=== PATIENT | female | born 1990 | race Caucasian/White ===

== ENCOUNTER 2016-11-12 15:50 | Emergency (ER) | payer OTHER ==
[~2016-11-12] VITALS: Ht 167.6 cm; Wt 56.9 kg
[2016-11-12 15:55] VITALS: TEMP 36.8; Ht 167.6 cm; Wt 56.9 kg
[2016-11-12] MEDS ORDERED: HYDROCODONE/ACETAMOPHEN 5/325MG TAB PO STA (16:04)
[2016-11-12] MEDS ORDERED: ONDANSETRON 4MG OD TAB PO STA (16:04)
[2016-11-12] MEDS ORDERED: CHOL1000 PO (16:17)
[2016-11-12] MEDS ORDERED: NXM/40 PO (16:18)
[2016-11-12] MEDS ORDERED: ESCI10TA17 PO (16:19)
[2016-11-12] MEDS ORDERED: RANI300T2 PO (16:20)
[2016-11-12] MEDS ORDERED: TRAZ50TA35 PO (16:20)
[2016-11-12] MEDS ORDERED: B-COTAB18 PO (16:22)
--- NOTE | 2016-11-12 16:57 | DIAGNOSTIC IMAGING REPORT ---
CT HEAD WITHOUT CONTRAST (CT) CLINICAL HISTORY: Head trauma. Headache, nausea. COMPARISON STUDY: No previous studies for comparison. TECHNIQUE: Axial CT of the brain is performed from the vertex to the skull base. IV contrast was not administered for this examination. A dose lowering technique was utilized adhering to the principles of ALARA. CT DOSE: 537.48 mGy.cm FINDINGS: No intra or extra-axial mass lesions are visualized. There is no CT evidence of acute cortical infarction. There is no evidence of midline shift. There is no acute hemorrhage. No calvarial fractures are visualized. There is no evidence of pathologic ventricular dilatation. There is no evidence of acute sinusitis IMPRESSION: Normal noncontrast head CT. Electronically signed by: Prasanna Rosenthal M.D. 11/12/2016 4:55 PM Dictated Date/Time: 11/12/2016 4:54 PM
[2016-11-12] MEDS ORDERED: KETOROLAC TROMETHAMINE 60 MG/2 ML VIAL IM STA (17:11)
[2016-11-12 18:10] VITALS: BP 117/65; PULSE 63; O2SAT 98
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
== END 2016-11-12 18:09 | disposition home or self-care (01) ==
LOC: C.EDB 15:51 → C.EDD 18:09
DX: S09.90XA Unspecified injury of head, initial encounter (principal); R51 Headache; Z79.899 Other long term (current) drug therapy; Z87.442 Personal history of urinary calculi; F17.200 Nicotine dependence, unspecified, uncomplicated; Y04.0XXA Assault by unarmed brawl or fight, initial encounter

== ENCOUNTER 2021-08-18 17:48 | Inpatient (IN) ==
[2021-08-18] MEDS ORDERED: OXYTOCIN 30 UNITS/500 ML BAG IV PRN (18:11)
[2021-08-18] MEDS ORDERED: SODIUM CHLORIDE 0.9% 1000ML 1,000 ML IV PRN (18:12)
[2021-08-18] MEDS ORDERED: DEXTROSE 50% 50 ML SYRINGE IV PRN (18:12)
--- NOTE | 2021-08-18 18:13 | History & Physical Report ---
Date of Service August 18, 2021 Assessment & Plan (1) 40 weeks gestation of : Plan: Admit for term labor, routine labs Epidural Plan to AROM after Anticipate spontaneous vaginal delivery (2) GDM (gestational diabetes mellitus), class A1: Plan: Hourly glucose checks, start insulin protocol if indicated (3) LGA (large for gestational age) fetus: Plan: EFW on August 17, 2021 was 412 4 g No contraindication to attempted vaginal delivery at this time, would not attempt operative delivery for increased risk of shoulder dystocia (4) Anemia affecting in third trimester: Plan: CBC pending (5) renal anomaly, single gestation: Plan: 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 on US plan for post renal ultrasound and pediatric nephrology in 4 to 6 weeks (6) Rubella non-immune status, antepartum: Plan: MMR (7) Moderate recurrent major depression: Plan: Continue to monitor (8) Maternal varicella, non-immune: (9) Calculus of kidney affecting in third trimester: Plan: Patient has a renal stent and on the right side Plan for Barbour catheter instead of straight catheter after epidural Admission and Anticipated Discharge Date Admission Date: 08/18/2021 History of Present Illness Chief Complaint: Contractions Primary Care Provider: Luz Maria Curtis PA-C Patient is a 31-year-old G1, P0 at 40 weeks and 2 days dated by last menstrual period consistent with 8-week ultrasound who presents to labor and delivery for ongoing contractions. When she initially called the answering service contractions were every 10 minutes however now they are every 3 to 4 minutes. Notes good movement. Denies vaginal bleeding or leaking of fluid. Think she lost her mucous plug earlier today. Denies headache, blurry vision, right upper quadrant epigastric pain. Otherwise feeling well. No other complaints at this time. Desires an epidural for pain control history is complicated by diet-controlled gestational diabetes, renal anomaly, antepartum anemia, tobacco use, rubella nonimmune, moderate recurrent depression, varicella nonimmune and a calculus of right kidney in her third trimester which she got on stent in her right ureter. Please see record for further information Allergies Allergy/AdvReac Type Severity Reaction Status Date / Time No Known Allergies Allergy Unverified 11/12/16 16:23 Home Medications Medication Instructions Recorded Confirmed Type B-COMPLEX VITAMINS (VITAMIN B 1 tab PO QAM #0 11/12/16 History COMPLEX) CHOLECALCIFEROL (VITAMIN D3) 1,000 unit PO QAM #0 tab 11/12/16 History Escitalopram (Lexapro) 10 mg PO QAM #0 tab 11/12/16 History Esomeprazole Magnesium (Nexium) 40 mg PO QAM #0 cap 11/12/16 History Ranitidine Hcl (ZANTAC) 300 mg PO HS #0 tab 11/12/16 History Trazodone Hcl (Trazodone) 50 mg PO HS #0 tab 11/12/16 History Patient History OB History [employer] History See record Review of Systems All systems reviewed & are unremarkable except as noted in HPI & below Physical Exam Constitutional: WD/WN, vitals as above Respiratory: normal respiratory effort, lungs clear to auscultation Cardiovascular: RRR, no murmur, no edema Gastrointestinal (Abdomen): normal bowel sounds, soft, nontender, no hepatosplenomegaly Genitourinary: no vaginal lesions, no adnexal mass OB Exam Abdomen: + fundal height, + heart tones, + vertex, + estimated weight and + regular contractions FH: 40 Cervix: 6/90/-1, bulging bag, cephalic Results & Data ([facility]) Vital Signs (Past 12 Hours) Vital Signs Pulse BP 08/18/21 18:04 85 125/70 Laboratory Results Pending Monitoring External Monitor FHT: Baseline 150, moderate variability, positive accelerations, no decelerations, category 1 tracing Tocodynamometer Tocometer: Every 3 to 4-minute
[2021-08-18] MEDS: LACTATED RINGER'S 1,000 ML IV PRN ×2 (18:40→20:15)
[2021-08-18] MEDS ORDERED: ePHEDrine sulfate 50 MG/ML AMP ONE (18:50)
[2021-08-18] MEDS ORDERED: fentaNYL 2MCG/ML ROPIVACAINE 1.25MG/ML 100 ML BAG EPI ONE (18:51)
[2021-08-18] MEDS ORDERED: fentaNYL citrate 100 MCG/2 ML VIAL ONE (18:51)
[2021-08-18] MEDS ORDERED: SODIUM CHLORIDE 0.9% INJ 10 ML VIAL ONE (18:51)
[2021-08-18] MEDS ORDERED: BUPIVACAINE 0.25% 30 ML VIAL ONE ×2 (18:51→23:12)
[2021-08-18 18:53] LABS: Hematocrit (blood only) 33.6 % (37-47); Hemoglobin 11.5 g/dL (12.0-16.0); Mean Corpuscular Hemoglobin 32.7 pg (25-34); Mean Corpuscular Hgb Conc 34.2 g/dL (32-36); Mean Corpuscular Volume 95.5 fL (80-100); Mean Platelet Volume 10.4 fL (7.4-10.4); Platelet Count 250 K/uL (130-400); RDW Coefficient of Variation 13.8 % (11.5-14.5); RDW Standard Deviation 47.8 fL (36.4-46.3); Red Blood Count 3.52 M/uL (4.2-5.4); White Blood Count 17.86 K/uL (4.8-10.8)
[2021-08-18] MEDS ORDERED: ONDANSETRON INJ 2 MG/ML 2 ML VIAL IV PRN (19:01)
[2021-08-18] MEDS ORDERED: NALBUPHINE HCL INJ 10 MG/ML AMP IV PRN (19:01)
[2021-08-18] MEDS ORDERED: NALOXONE HCL 0.4 MG/1 ML VIAL/CARP IV PRN (19:01)
[2021-08-18] MEDS ORDERED: diphenhydrAMINE 50 MG/ML VIAL IV PRN (19:01)
[2021-08-18] MEDS ORDERED: NALOXONE HCL 1 MG in SODIUM CHLORIDE 0.9% 1000ML 1,000 ML IV PRN (19:01)
[2021-08-18] MEDS ORDERED: ePHEDrine sulfate 50 MG/ML AMP IV PRN (19:01)
--- NOTE | 2021-08-18 19:02 | Anesthesiology Consultation ---
Date of Service August 18, 2021 Assessment & Plan (1) Encounter for pre-operative examination: Chart Review Chart Review: Patient NOT seen in Pre Admission Testing and Acceptable Risk for Labor Epidural Consults Requested none History Allergies Allergy/AdvReac Type Severity Reaction Status Date / Time No Known Allergies Allergy Verified 08/18/21 19:16 Medications Home Medications Medication Instructions Recorded Confirmed Last Taken B-COMPLEX VITAMINS (VITAMIN B 1 tab PO QAM #0 11/12/16 Unknown COMPLEX) CHOLECALCIFEROL (VITAMIN D3) 1,000 unit PO QAM #0 tab 11/12/16 Unknown Escitalopram (Lexapro) 10 mg PO QAM #0 tab 11/12/16 Unknown Esomeprazole Magnesium (Nexium) 40 mg PO QAM #0 cap 11/12/16 Unknown Ranitidine Hcl (ZANTAC) 300 mg PO HS #0 tab 11/12/16 Unknown Trazodone Hcl (Trazodone) 50 mg PO HS #0 tab 11/12/16 Unknown Active Medications Generic Name Dose Route Start Last Admin Trade Name Freq PRN Reason Stop Dose Admin Lactated Ringer's 1,000 mls @ 125 mls/hr 08/18/21 18:11 08/18/21 18:40 Lr IV 08/20/21 18:10 999 mls/hr .Q8H PRN Administration L&D Protocol Protocol Past Medical History Medical History (Updated 08/18/21 @ 19:02 by Renan Herrera MD) GDM (gestational diabetes mellitus), class A1 LGA (large for gestational age) fetus Exercise / Class Metabolic Activity II 4-5 Yardwork/Stairs/Walk up hill Past Surgical History Surgical History (Updated 08/18/21 @ 19:19 by Kaley Leon RN) History of renal stent May 2021 Hx of tonsillectomy as a child [place] teeth extracted Past Anesthesia History No Hx of Anesthesia Complications and No Family Hx of Anesthesia Complications History of PONV No Hx of PONV and No Hx of Motion Sickness Physical Exam Vital Signs Last Vital Signs Pulse 103 H 08/18/21 19:22 BP 125/70 08/18/21 18:04 Pulse Ox 99 08/18/21 19:22 Testing Laboratory Results 08/18/21 18:38 08/18/21 18:53 POC Glucose 99
--- NOTE | 2021-08-18 19:46 | Anesthesia Procedure Note ---
Date of Service August 18, 2021 Anesthesia Post Epidural Note Vital Signs Vital Signs: Pulse BP Pulse Ox 72 117/62 98 08/18/21 19:44 08/18/21 19:44 08/18/21 19:42 Notes Mental Status: alert / awake / arousable and participated in evaluation Patient Amnestic to Procedure: No Nausea / Vomiting: adequately controlled Pain: adequately controlled Airway Patency, RR, SpO2: stable & adequate BP & HR: stable & adequate Hydration State: stable & adequate Neuraxial Anesthesia: was administered and sensory block is resolving Anesthetic Complications: no major complications apparent and Pt Satisfied with anesthetic care Epidural: Removed without complications and With tip intact
--- NOTE | 2021-08-18 21:00 | Labor Progress Brief Note ---
Date of Service August 18, 2021 Subjective Comfortable on epidural at this time. No concerns Assessment & Plan (1) 40 weeks gestation of : Plan: Start pit if no cervical change at next check or hypotonic uterine contractions Anticipate spontaneous vaginal delivery (2) GDM (gestational diabetes mellitus), class A1: Plan: Hourly glucose checks, start insulin protocol if indicated (3) LGA (large for gestational age) fetus: Plan: EFW on August 17, 2021 was 412 4 g No contraindication to attempted vaginal delivery at this time, would not attempt operative delivery for increased risk of shoulder dystocia (4) Anemia affecting in third trimester: Plan: H/H on admission 11.5/33.6% (5) renal anomaly, single gestation: Plan: 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 on US plan for post renal ultrasound and pediatric nephrology in 4 to 6 weeks (6) Rubella non-immune status, antepartum: Plan: MMR (7) Moderate recurrent major depression: Plan: Continue to monitor (8) Maternal varicella, non-immune: (9) Calculus of kidney affecting in third trimester: Plan: Patient has a renal stent and on the right side Plan for Barbour catheter instead of straight catheter after epidural Admission and Anticipated Discharge Date Admission Date: August 18, 2021 Physical Exam Genitourinary: FHT: baseline 150, moderate variability, positive accelerations, no decelerations, category 1 tracing Tocometer: Contractions every 2 to 4-minute Cervix: 6/90/-1, AROM performed with thick meconium noted, no cord felt. Results & Data ([facility]) Vital Signs (Past 12 Hours) Vital Signs Temp Pulse Resp BP Pulse Ox 08/18/21 20:52 85 96 08/18/21 20:47 86 95 08/18/21 20:46 86 119/67 08/18/21 20:42 83 97 08/18/21 20:41 96 H 94 08/18/21 20:37 89 96 08/18/21 20:32 91 H 97 08/18/21 20:30 84 18 124/71 08/18/21 20:27 97 H 97 08/18/21 20:22 83 99 08/18/21 20:17 84 98 08/18/21 20:12 97 H 99 08/18/21 20:11 83 116/63 08/18/21 20:07 82 98 08/18/21 20:06 86 116/73 05 20:02 72 100 05 20:00 80 18 122/61 05 19:57 77 100 08/18/21 19:56 67 117/66 05 19:52 89 100 08/18/21 19:50 86 119/69 05 19:47 85 96 08/18/21 19:45 36.9 C 20 08/18/21 19:44 72 117/62 05 19:42 73 122/68 98 08/18/21 19:40 75 117/68 08/18/21 19:38 85 114/62 05 19:37 93 H 99 08/18/21 19:36 84 115/62 05 19:34 86 116/63 08/18/21 19:32 80 114/65 98 08/18/21 19:30 93 H 117/65 05 19:28 86 111/63 08/18/21 19:27 94 H 99 08/18/21 19:26 73 113/63 05 19:23 75 118/65 05 19:22 103 H 99 08/18/21 19:17 101 H 98 08/18/21 19:12 79 98 08/18/21 19:07 79 98 08/18/21 18:04 85 125/70
[2021-08-18] MEDS: CALCIUM CARBONATE 500 MG CHEWABLE TAB PO PRN (22:31)
[2021-08-18] MEDS ORDERED: NURSING L&D Epidural Breakthrough Pain Update ONE (22:45)
[2021-08-18] MEDS ORDERED: LIDOCAINE 2%/EPINEPHRINE 1:200,000 20 ML SDV ONE (23:20)
[2021-08-18] MEDS: DEXTROSE 5% 1,000 ML IV PRN (23:42)
[2021-08-18] MEDS: INSULIN REGULAR 250 UNITS in SODIUM CHLORIDE 0.9% 247.5 ML IV PRN (23:42)
[2021-08-19] MEDS: fentaNYL 2MCG/ML ROPIVACAINE 1.25MG/ML 100 ML BAG EPI PRN ×3 (00:12→10:10)
[2021-08-19] MEDS: CALCIUM CARBONATE 500 MG CHEWABLE TAB PO PRN (02:00)
--- NOTE | 2021-08-19 03:08 | Communication Note ---
Date of Service: August 19, 2021 Bolused patient twice overnight. placed on monitor. divided doses. used a 4ml of 2% lido with epi along with 4ml of 0.25% bupivicaine each time.
--- NOTE | 2021-08-19 03:38 | Anesthesiology Progress Note ---
Date of Service August 19, 2021 Assessment & Plan (1) Encounter for pre-operative examination: Plan: Neuraxial Placement Date and time of procedure: Indication: labor epidural. Consent: Informed consent obtained from the patient or designated proxy. The inherent risks, expected benefits, treatment alternatives, as well as the technical aspects of the procedure were discussed with the patient and a full explanation was given. Patient was given the opportunity to ask questions, which were answered to their satisfaction. Time Out: A time-out was performed verifying correct patient with two identifiers, procedure, site, positioning, and special equipment (if needed). Monitors Attached: EKG BP Pulse Oximetr Position: Sitting Prep: Duraprep Sterile Drape Sterile procedures used Site: Midline Level L[3-4] Local Skin Infiltration: [2]ml 2% lidocaine Neuraxial Technique: Epidural Needle: 17g x 3.5 inch Tuohy catheter easily inserted Test dose: [3]ml of 1.5% Lidocaine with epinephrine 1:200,000 Anesthetic: [4]ml 0.25% Bupivicaine with 4ml 2% lidocaine Additives: Attempts: 1 Parasthesias: No CSF: No Blood: No Post Procedure: Patient tolerated the procedure well without apparent complications. Admission and Anticipated Discharge Date Admission Date: August 18, 2021 Subjective patient with continued pain. decided to replace epidural per her request. Physical Exam Vital Signs: Last Vital Signs Temp 36.8 C 08/19/21 02:50 Pulse 85 08/19/21 03:30 Resp 20 08/19/21 03:22 BP 140/65 08/19/21 03:30 Pulse Ox 100 08/19/21 03:27 Results & Data ([facility]) Medications Administered Calcium Carbonate (Calcium Carbonate 500 Mg Chewable Tab) 500 mg PO Q4H PRN PRN Reason: Indigestion Stop: 09/17/21 22:06 Last Admin: 08/19/21 02:00 Dose: 500 mg Documented by: [id number] Admin: 08/18/21 22:31 Dose: 500 mg Documented by: [id number] Lactated Ringer's (Lr) 1,000 mls @ 125 mls/hr IV .Q8H PRN; Protocol PRN Reason: L&D Protocol Stop: 08/20/21 18:10 Last Infusion: 08/19/21 02:55 Dose: 100 mls/hr Documented by: Nancy Infusion: 08/19/21 02:03 Dose: 100 mls/hr Documented by: Nancy Infusion: 08/19/21 00:53 Dose: 100 mls/hr Documented by: Nancy Admin: 08/18/21 20:15 Dose: 125 mls/hr Documented by: Nancy Infusion: 08/18/21 19:41 Dose: 999 mls/hr Documented by: Nancy Admin: 08/18/21 18:40 Dose: 999 mls/hr Documented by: Nancy Dextrose ([id number]) 1,000 mls @ 100 mls/hr IV .Q10H PRN; Protocol PRN Reason: BSG 180 or below Stop: 09/17/21 18:11 Last Infusion: 08/19/21 02:55 Dose: 75 mls/hr Documented by: Nancy Infusion: 08/19/21 02:03 Dose: 50 mls/hr Documented by: Nancy Infusion: 08/19/21 00:53 Dose: 75 mls/hr Documented by: Nancy Admin: 08/18/21 23:42 Dose: 50 mls/hr Documented by: Nancy Insulin Human Regular 250 (units/ Sodium Chloride) 250 mls @ 1 mls/hr IV .Q24H PRN; Protocol PRN Reason: BSG 80mg/dL or ABOVE Stop: 09/17/21 18:11 Last Titration: 08/19/21 02:55 Dose: 1 units/hr, 1 mls/hr Documented by: Nancy Cosigned by: [id number] Titration: 08/19/21 02:03 Dose: 1.5 units/hr, 1.5 mls/hr Documented by: Nancy Cosigned by: [id number] Titration: 08/19/21 00:53 Dose: 1 units/hr, 1 mls/hr Documented by: Nancy Cosigned by: [id number] Admin: 08/18/21 23:42 Dose: 1.5 units/hr, 1.5 mls/hr Documented by: Nancy Cosigned by: [id number] Ondansetron HCl (Ondansetron Inj 2 Mg/Ml 2 Ml Vial) 4 mg IV Q6H PRN PRN Reason: Nausea And Vomiting Stop: 08/19/21 19:00 Last Admin: 08/19/21 02:50 Dose: 4 mg Documented by: Nancy Ropivacaine (Fentanyl 2mcg/Ml Ropivacaine 1.25mg/Ml 100 Ml Bag) 100 ml EPI PRN PRN; Protocol PRN Reason: Pain R/T Labor Stop: 08/19/21 19:00 Last Admin: 08/19/21 00:12 Dose: 100 ml Documented by: [id number] Cosigned by: [id number]
[2021-08-19] MEDS: LACTATED RINGER'S 1,000 ML IV PRN ×2 (04:07→07:19)
[2021-08-19] MEDS: INSULIN REGULAR 250 UNITS in SODIUM CHLORIDE 0.9% 247.5 ML IV PRN (04:08)
[2021-08-19] MEDS: DEXTROSE 5% 1,000 ML IV PRN (04:10)
[2021-08-19] MEDS ORDERED: OXYTOCIN 30 UNITS/500 ML BAG IV PRN ×2 (06:23→12:21)
--- NOTE | 2021-08-19 06:33 | Labor Progress Brief Note ---
Date of Service August 19, 2021 Subjective Comfortable on epidural at this time. 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 on US plan for post renal ultrasound and pediatric nephrology in 4 to 6 weeks (6) Rubella non-immune status, antepartum: Plan: MMR (7) Moderate recurrent major depression: Plan: Continue to monitor (8) Maternal varicella, non-immune: (9) Calculus of kidney affecting in third trimester: Plan: Patient has a renal stent and on the right side Barbour catheter in place Admission and Anticipated Discharge Date Admission Date: August 18, 2021 Physical Exam Genitourinary: FHT: baseline 155, mod variability, no accelerations no decelerations Tocometer: Contractions every 4 to 5 minutes Cervix: Anterior lip/100/+1, checked by RN Results & Data ([facility]) Vital Signs (Past 12 Hours) Vital Signs Temp Pulse Resp BP Pulse Ox 08/19/21 06:27 88 96 08/19/21 06:22 87 96 08/19/21 06:21 85 135/71 08/19/21 06:17 93 H 95 08/19/21 06:12 84 96 08/19/21 06:07 92 H 95 08/19/21 06:06 87 144/67 H 08/19/21 06:02 89 95 08/19/21 06:00 18 08/19/21 05:57 102 H 95 08/19/21 05:52 89 136/60 93 08/19/21 05:47 93 H 95 08/19/21 05:42 95 H 93 08/19/21 05:37 92 H 93 08/19/21 05:36 93 H 123/63 08/19/21 05:32 109 H 94 08/19/21 05:30 18 08/19/21 05:27 105 H 94 08/19/21 05:22 104 H 94 08/19/21 05:21 93 H 123/58 L 08/19/21 05:17 90 94 08/19/21 05:12 89 94 08/19/21 05:11 37.8 C H 08/19/21 05:07 94 H 95 08/19/21 05:06 85 128/73 08/19/21 05:02 97 H 93 08/19/21 05:00 18 08/19/21 04:57 89 94 08/19/21 04:52 103 H 120/64 93 08/19/21 04:47 91 H 92 08/19/21 04:42 91 H 93 08/19/21 04:37 101 H 116/66 93 08/19/21 04:32 92 H 92 08/19/21 04:27 90 92 08/19/21 04:22 92 H 93 08/19/21 04:21 81 118/59 L 08/19/21 04:17 85 92 08/19/21 04:12 93 H 93 08/19/21 04:07 95 H 94 08/19/21 04:03 89 120/65 08/19/21 04:02 94 H 92 08/19/21 03:57 96 H 116/61 93 08/19/21 03:53 89 119/65 08/19/21 03:52 89 93 08/19/21 03:47 98 H 131/67 95 08/19/21 03:45 93 H 132/65 08/19/21 03:43 93 H 135/67 08/19/21 03:42 93 H 94 08/19/21 03:41 91 H 128/64 08/19/21 03:39 88 128/64 08/19/21 03:37 87 131/65 93 08/19/21 03:35 89 119/57 L 08/19/21 03:33 88 125/61 08/19/21 03:32 89 94 08/19/21 03:30 85 140/65 08/19/21 03:27 89 100 08/19/21 03:22 97 H 20 100 08/19/21 03:18 87 128/80 08/19/21 03:17 95 H 100 08/19/21 03:16 86 137/85 08/19/21 03:12 88 100 08/19/21 03:10 76 137/84 08/19/21 03:07 80 98 08/19/21 03:02 77 98 08/19/21 03:00 18 08/19/21 02:57 99 H 100 08/19/21 02:56 83 134/72 08/19/21 02:52 105 H 100 08/19/21 02:50 36.8 C 08/19/21 02:47 107 H 100 08/19/21 02:42 84 99 08/19/21 02:40 76 131/72 08/19/21 02:37 77 100 08/19/21 02:32 73 99 08/19/21 02:30 18 08/19/21 02:27 72 100 08/19/21 02:25 76 112/65 08/19/21 02:22 86 100 08/19/21 02:17 75 98 08/19/21 02:12 70 100 08/19/21 02:09 86 109/61 08/19/21 02:07 93 H 99 08/19/21 02:02 106 H 98 08/19/21 02:00 18 08/19/21 01:57 80 98 08/19/21 01:54 85 119/66 08/19/21 01:52 89 96 08/19/21 01:47 85 96 08/19/21 01:42 73 97 08/19/21 01:39 82 125/72 08/19/21 01:37 89 97 08/19/21 01:32 83 95 08/19/21 01:30 18 08/19/21 01:27 82 94 08/19/21 01:26 72 124/65 08/19/21 01:22 83 93 08/19/21 01:17 96 H 93 08/19/21 01:12 78 93 08/19/21 01:11 85 116/56 L 08/19/21 01:07 87 92 08/19/21 01:02 84 93 08/19/21 01:00 18 08/19/21 00:57 81 91 08/19/21 00:55 37.1 C 89 120/65 08/19/21 00:52 95 H 93 08/19/21 00:48 89 94 08/19/21 00:47 98 H 95 08/19/21 00:42 83 92 08/19/21 00:40 92 H 117/66 08/19/21 00:37 101 H 92 08/19/21 00:32 96 H 93 08/19/21 00:30 16 08/19/21 00:27 89 93 08/19/21 00:24 94 H 115/64 08/19/21 00:22 92 H 94 08/19/21 00:17 109 H 99 08/19/21 00:12 88 100 08/19/21 00:09 101 H 117/60 08/19/21 00:07 111 H 119/57 L 100 08/19/21 00:05 100 H 123/60 08/19/21 00:03 86 123/56 L 08/19/21 00:02 103 H 100 08/19/21 00:01 116 H 113/64 08/19/21 00:00 16 08/18/21 23:59 120 H 115/65 08/18/21 23:57 108 H 119/67 100 08/18/21 23:55 108 H 115/62 08/18/21 23:53 115 H 115/59 L 08/18/21 23:52 96 H 100 08/18/21 23:47 96 H 100 08/18/21 23:45 95 H 118/59 L 08/18/21 23:44 87 134/55 L 08/18/21 23:42 92 H 98 08/18/21 23:41 90 130/67 08/18/21 23:39 104 H 123/63 08/18/21 23:37 101 H 135/72 98 08/18/21 23:35 102 H 129/70 08/18/21 23:33 97 H 128/71 08/18/21 23:32 111 H 99 08/18/21 23:31 91 H 132/73 08/18/21 23:30 16 08/18/21 23:29 90 131/73 08/18/21 23:27 89 97 08/18/21 23:26 75 132/71 08/18/21 23:22 78 99 08/18/21 23:17 80 127/71 99 08/18/21 23:12 87 96 08/18/21 23:07 74 98 08/18/21 23:05 37.0 C 05/21/22 23:02 71 97 08/18/21 23:00 83 18 115/57 L 08/18/21 22:57 76 97 22 22:52 74 97 0522 22:47 70 96 0522 22:45 95 H 116/56 L 08/18/21 22:42 73 96 08/18/21 22:37 77 97 05 22:32 93 H 97 08/18/21 22:31 86 132/63 0522 22:30 20 08/18/21 22:27 95 H 97 08/18/21 22:22 102 H 97 08/18/21 22:17 96 H 129/59 L 97 08/18/21 22:14 89 92 08/18/21 22:12 93 H 96 08/18/21 22:07 76 95 08/18/21 22:02 79 96 08/18/21 22:01 77 124/60 08/18/21 22:00 18 08/18/21 21:57 86 96 08/18/21 21:52 81 95 08/18/21 21:47 79 97 22 21:45 82 118/66 0522 21:42 91 H 98 22 21:37 87 97 08/18/21 21:32 88 96 0522 21:31 81 116/61 0522 21:30 16 22 21:27 99 H 97 22 21:22 81 97 08/18/21 21:17 91 H 97 2122 21:16 99 H 92 052122 21:15 100 H 123/72 052122 21:12 93 H 98 052122 21:07 102 H 97 052122 21:02 99 H 96 0522 21:00 37.5 C 96 H 20 119/71 0522 20:57 96 H 98 052122 20:52 85 96 052122 20:47 86 95 0521/22 20:46 86 119/67 0521/22 20:42 83 97 052122 20:41 96 H 94 052122 20:37 89 96 0522 20:32 91 H 97 05/22 20:30 84 18 124/71 05/22 20:27 97 H 97 05/22 20:22 83 99 05/22 20:17 84 98 05/22 20:12 97 H 99 05/22 20:11 83 116/63 05/22 20:07 82 98 05 20:06 86 116/73 05 20:02 72 100 05 20:00 80 18 122/61 05/22 19:57 77 100 0522 19:56 67 117/66 05/ 19:52 89 100 05 19:50 86 119/69 05 19:47 85 96 05 19:45 36.9 C 20 08/18/21 19:44 72 117/62 05/ 19:42 73 122/68 98 05 19:40 75 117/68 05 19:38 85 114/62 05/22 19:37 93 H 99 08/18/21 19:36 84 115/62 05/22 19:34 86 116/63 05/ 19:32 80 114/65 98 05/ 19:30 93 H 117/65 05/22 19:28 86 111/63 05/ 19:27 94 H 99 05/ 19:26 73 113/63 05/22 19:23 75 118/65 05/22 19:22 103 H 99 05 19:17 101 H 98 05/22 19:12 79 98 05 19:07 79 98 05/22 19:01 36.9 C 20
[2021-08-19] MEDS: SERTRALINE HCL 50 MG TABLET PO SCH (08:06)
[2021-08-19] MEDS ORDERED: MEASLES, MUMPS & RUBELLA VIRUS VIAL SQ ONE (12:21)
[2021-08-19] MEDS ORDERED: BENZOCAINE 20% AER SPR 82.5 GM CAN EXT PRN (12:21)
[2021-08-19] MEDS ORDERED: HYDROCORTISONE ACETATE 25 MG SUPP PR PRN (12:21)
[2021-08-19] MEDS ORDERED: DIPHTHERIA/TETANUS/PERTUSSIS 0.5 ML SYR/VIAL IM ONE (12:21)
[2021-08-19] MEDS ORDERED: ACETAMINOPHEN 325 MG TAB PO PRN (12:21)
[2021-08-19] MEDS ORDERED: bisacodyL 10 MG SUPP PR PRN (12:21)
[2021-08-19] MEDS ORDERED: VARICELLA VIRUS VACCINE LIVE VIAL SQ ONE (12:21)
[2021-08-19] MEDS ORDERED: oxyCODONE/ACETAMINOPHEN 5mg/325mg TAB PO PRN (12:21)
[2021-08-19] MEDS ORDERED: METHYLERGONOVINE MALEATE 0.2 MG/ML AMP ONE (12:23)
--- NOTE | 2021-08-19 12:26 | Delivery Summary ---
Vaginal Delivery Summary Date of Service August 19, 2021 Vaginal Delivery Summary Delivery Note History synopsis: Patient is a 31-year-old G1, P0 admitted at 40 weeks and 2 days for term labor at 6 cm dilated. Labor Course: Patient was admitted for term labor, received an epidural for pain control. Artificial rupture of membranes noted thick meconium, she then progressed to 7 cm, and then 9 cm at approximately 2:30 AM. She then remade 9 to 9.5 cm until this morning, oxytocin was started for augmentation for hypotonic uterine contractions. She progressed to complete. And I was called for delivery Delivery Summary: Patient was placed in the dorsal lithotomy position. She was prepped and draped in the usual sterile fashion. Upon maternal pushing the head was delivered atraumatically followed by the anterior shoulders, posterior shoulders then the remainder of the infants body. The infants mouth and nose were bulb suction below the level of the perineum. A female was delivered at 1205, weight pending with APGARS of 8 at 1 minute and 9 at 5 minutes. The umbilical cord was clamped times two and cut after 1 minute of delayed cord clamping. The was handed off to the awaiting nursing staff. Cord blood gases were not obtained. The placenta delivered intact with three vessel cord at 1207. Placenta was sent to pathology. Thirty units of Pitocin were added to the IV fluid and allowed to run freely. Uterine massage was performed and noted uterine atony at this time. Methergine x1 dose was given intramuscularly. Remaining massage was performed until the uterus was deemed firm. Upon inspection of the perineum, vagina and cervix were intact. Second degree laceration was noted which was repaired with 3-0 vicryl in the usual fashion. Upon re-inspection the patient was hemostatic. Uterus again massaged and found to be firm. Needle and sponge counts were correct. Patient was stable and allowed to recover in L&D room. was stable and remained in room with mother in the Family Care Unit. EBL 800mls
--- NOTE | 2021-08-19 13:53 | Anesthesiology Progress Note ---
Date of Service August 19, 2021 Anesthesia Post Procedure Vital Signs Vital Signs: Temp Pulse Resp BP Pulse Ox 08/19/21 13:40 81 124/58 L 08/19/21 13:36 91 H 140/57 L 08/19/21 13:10 83 120/56 L 08/19/21 12:55 90 120/56 L 08/19/21 12:40 90 119/60 08/19/21 12:35 36.5 C 89 20 116/59 L 08/19/21 12:25 108 H 122/66 08/19/21 12:20 36.5 C 20 08/19/21 12:10 102 H 110/58 L 08/19/21 12:08 84 97 08/19/21 12:03 87 97 08/19/21 12:00 20 08/19/21 11:58 84 97 08/19/21 11:55 96 H 120/74 08/19/21 11:53 118 H 97 08/19/21 11:48 124 H 98 08/19/21 11:45 20 08/19/21 11:43 103 H 95 08/19/21 11:38 100 H 97 08/19/21 11:33 91 H 95 08/19/21 11:30 20 08/19/21 11:28 98 H 96 08/19/21 11:26 96 H 111/58 L 08/19/21 11:23 124 H 96 08/19/21 11:18 104 H 97 08/19/21 11:15 20 08/19/21 11:13 90 93 08/19/21 11:11 88 121/58 L 08/19/21 11:10 36.7 C 08/19/21 11:08 87 96 08/19/21 11:03 72 95 08/19/21 11:00 20 08/19/21 10:58 107 H 96 08/19/21 10:55 75 108/57 L 08/19/21 10:53 88 94 08/19/21 10:48 89 94 08/19/21 10:45 20 08/19/21 10:43 87 95 08/19/21 10:40 73 122/63 08/19/21 10:38 77 94 08/19/21 10:33 110 H 96 08/19/21 10:32 20 08/19/21 10:27 78 94 08/19/21 10:25 80 111/58 L 08/19/21 10:22 69 95 08/19/21 10:17 80 96 08/19/21 10:15 20 08/19/21 10:12 80 95 08/19/21 10:11 85 118/58 L 08/19/21 10:07 81 96 08/19/21 10:02 81 95 08/19/21 10:00 20 08/19/21 09:57 79 95 08/19/21 09:56 79 110/63 08/19/21 09:52 82 95 08/19/21 09:47 86 96 08/19/21 09:45 20 08/19/21 09:42 79 94 08/19/21 09:40 77 111/61 08/19/21 09:37 87 94 08/19/21 09:32 75 94 08/19/21 09:30 20 08/19/21 09:27 88 95 08/19/21 09:24 36.6 C 08/19/21 09:22 92 H 94 08/19/21 09:17 75 94 08/19/21 09:15 20 08/19/21 09:12 87 94 08/19/21 09:10 89 107/58 L 08/19/21 09:07 85 95 08/19/21 09:02 85 95 08/19/21 09:00 20 08/19/21 08:57 90 94 08/19/21 08:56 85 116/59 L 08/19/21 08:55 81 115/68 08/19/21 08:52 82 94 08/19/21 08:47 81 94 08/19/21 08:45 20 08/19/21 08:42 92 H 94 08/19/21 08:40 83 112/60 08/19/21 08:37 73 94 08/19/21 08:32 87 95 08/19/21 08:30 20 08/19/21 08:27 88 94 08/19/21 08:25 96 H 110/58 L 08/19/21 08:22 105 H 95 08/19/21 08:17 87 95 08/19/21 08:15 96 H 113/60 08/19/21 08:12 96 H 95 08/19/21 08:11 95 H 117/66 08/19/21 08:07 96 H 95 08/19/21 08:02 114 H 94 08/19/21 08:00 20 08/19/21 07:57 88 94 08/19/21 07:54 102 H 126/67 08/19/21 07:52 98 H 133/73 94 08/19/21 07:50 91 H 133/71 08/19/21 07:48 74 128/72 08/19/21 07:47 74 94 08/19/21 07:46 95 H 132/71 08/19/21 07:42 77 93 08/19/21 07:41 85 90 08/19/21 07:37 91 H 93 08/19/21 07:36 79 133/71 08/19/21 07:32 83 94 08/19/21 07:30 20 08/19/21 07:27 95 H 93 08/19/21 07:22 90 133/73 92 08/19/21 07:17 81 135/72 94 08/19/21 07:16 37.2 C 20 08/19/21 07:12 83 93 08/19/21 07:07 84 92 08/19/21 07:06 83 137/70 08/19/21 07:02 81 92 08/19/21 07:00 18 08/19/21 06:57 83 92 08/19/21 06:52 85 92 08/19/21 06:51 90 133/72 08/19/21 06:47 86 92 08/19/21 06:42 81 94 08/19/21 06:37 86 95 08/19/21 06:36 84 126/68 08/19/21 06:32 92 H 95 08/19/21 06:30 20 08/19/21 06:27 88 96 08/19/21 06:22 87 96 08/19/21 06:21 85 135/71 08/19/21 06:17 93 H 95 08/19/21 06:12 84 96 08/19/21 06:07 92 H 95 08/19/21 06:06 87 144/67 H 08/19/21 06:02 89 95 08/19/21 06:00 18 08/19/21 05:57 102 H 95 08/19/21 05:52 89 136/60 93 05 05:47 93 H 95 05/22/22 05:42 95 H 93 08/19/21 05:37 92 H 93 08/19/21 05:36 93 H 123/63 08/19/21 05:32 109 H 94 08/19/21 05:30 18 08/19/21 05:27 105 H 94 08/19/21 05:22 104 H 94 08/19/21 05:21 93 H 123/58 L 08/19/21 05:17 90 94 08/19/21 05:12 89 94 08/19/21 05:11 37.8 C H 08/19/21 05:07 94 H 95 08/19/21 05:06 85 128/73 08/19/21 05:02 97 H 93 08/19/21 05:00 18 08/19/21 04:57 89 94 08/19/21 04:52 103 H 120/64 93 08/19/21 04:47 91 H 92 08/19/21 04:42 91 H 93 08/19/21 04:37 101 H 116/66 93 08/19/21 04:32 92 H 92 08/19/21 04:27 90 92 08/19/21 04:22 92 H 93 08/19/21 04:21 81 118/59 L 08/19/21 04:17 85 92 08/19/21 04:12 93 H 93 08/19/21 04:07 95 H 94 08/19/21 04:03 89 120/65 08/19/21 04:02 94 H 92 08/19/21 03:57 96 H 116/61 93 08/19/21 03:53 89 119/65 08/19/21 03:52 89 93 08/19/21 03:47 98 H 131/67 95 08/19/21 03:45 93 H 132/65 08/19/21 03:43 93 H 135/67 08/19/21 03:42 93 H 94 08/19/21 03:41 91 H 128/64 08/19/21 03:39 88 128/64 08/19/21 03:37 87 131/65 93 08/19/21 03:35 89 119/57 L 08/19/21 03:33 88 125/61 08/19/21 03:32 89 94 08/19/21 03:30 85 140/65 05/22 03:27 89 100 08/19/21 03:22 97 H 20 100 08/19/21 03:18 87 128/80 08/19/21 03:17 95 H 100 08/19/21 03:16 86 137/85 08/19/21 03:12 88 100 08/19/21 03:10 76 137/84 08/19/21 03:07 80 98 08/19/21 03:02 77 98 08/19/21 03:00 18 08/19/21 02:57 99 H 100 08/19/21 02:56 83 134/72 08/19/21 02:52 105 H 100 08/19/21 02:50 36.8 C 08/19/21 02:47 107 H 100 08/19/21 02:42 84 99 08/19/21 02:40 76 131/72 08/19/21 02:37 77 100 08/19/21 02:32 73 99 08/19/21 02:30 18 08/19/21 02:27 72 100 08/19/21 02:25 76 112/65 08/19/21 02:22 86 100 08/19/21 02:17 75 98 08/19/21 02:12 70 100 08/19/21 02:09 86 109/61 08/19/21 02:07 93 H 99 08/19/21 02:02 106 H 98 08/19/21 02:00 18 08/19/21 01:57 80 98 08/19/21 01:54 85 119/66 08/19/21 01:52 89 96 08/19/21 01:47 85 96 08/19/21 01:42 73 97 08/19/21 01:39 82 125/72 08/19/21 01:37 89 97 08/19/21 01:32 83 95 08/19/21 01:30 18 08/19/21 01:27 82 94 08/19/21 01:26 72 124/65 08/19/21 01:22 83 93 08/19/21 01:17 96 H 93 08/19/21 01:12 78 93 08/19/21 01:11 85 116/56 L 08/19/21 01:07 87 92 08/19/21 01:02 84 93 08/19/21 01:00 18 08/19/21 00:57 81 91 08/19/21 00:55 37.1 C 89 120/65 08/19/21 00:52 95 H 93 08/19/21 00:48 89 94 08/19/21 00:47 98 H 95 08/19/21 00:42 83 92 08/19/21 00:40 92 H 117/66 08/19/21 00:37 101 H 92 08/19/21 00:32 96 H 93 08/19/21 00:30 16 08/19/21 00:27 89 93 08/19/21 00:24 94 H 115/64 08/19/21 00:22 92 H 94 08/19/21 00:17 109 H 99 08/19/21 00:12 88 100 08/19/21 00:09 101 H 117/60 08/19/21 00:07 111 H 119/57 L 100 08/19/21 00:05 100 H 123/60 08/19/21 00:03 86 123/56 L 08/19/21 00:02 103 H 100 08/19/21 00:01 116 H 113/64 08/19/21 00:00 16 08/18/21 23:59 120 H 115/65 08/18/21 23:57 108 H 119/67 100 08/18/21 23:55 108 H 115/62 08/18/21 23:53 115 H 115/59 L 08/18/21 23:52 96 H 100 08/18/21 23:47 96 H 100 08/18/21 23:45 95 H 118/59 L 08/18/21 23:44 87 134/55 L 08/18/21 23:42 92 H 98 08/18/21 23:41 90 130/67 08/18/21 23:39 104 H 123/63 08/18/21 23:37 101 H 135/72 98 08/18/21 23:35 102 H 129/70 08/18/21 23:33 97 H 128/71 08/18/21 23:32 111 H 99 08/18/21 23:31 91 H 132/73 08/18/21 23:30 16 08/18/21 23:29 90 131/73 08/18/21 23:27 89 97 08/18/21 23:26 75 132/71 0522 23:22 78 99 08/18/21 23:17 80 127/71 99 08/18/21 23:12 87 96 08/18/21 23:07 74 98 08/18/21 23:05 37.0 C 08/18/21 23:02 71 97 08/18/21 23:00 83 18 115/57 L 08/18/21 22:57 76 97 08/18/21 22:52 74 97 22 22:47 70 96 08/18/21 22:45 95 H 116/56 L 08/18/21 22:42 73 96 08/18/21 22:37 77 97 08/18/21 22:32 93 H 97 08/18/21 22:31 86 132/63 08/18/21 22:30 20 08/18/21 22:27 95 H 97 08/18/21 22:22 102 H 97 08/18/21 22:17 96 H 129/59 L 97 08/18/21 22:14 89 92 08/18/21 22:12 93 H 96 08/18/21 22:07 76 95 08/18/21 22:02 79 96 08/18/21 22:01 77 124/60 08/18/21 22:00 18 08/18/21 21:57 86 96 08/18/21 21:52 81 95 08/18/21 21:47 79 97 22 21:45 82 118/66 0522 21:42 91 H 98 22 21:37 87 97 08/18/21 21:32 88 96 2122 21:31 81 116/61 0522 21:30 16 22 21:27 99 H 97 22 21:22 81 97 2122 21:17 91 H 97 2122 21:16 99 H 92 052122 21:15 100 H 123/72 0522 21:12 93 H 98 052122 21:07 102 H 97 22 21:02 99 H 96 22 21:00 37.5 C 96 H 20 119/71 0522 20:57 96 H 98 22 20:52 85 96 08/18/21 20:47 86 95 08/18/21 20:46 86 119/67 08/18/21 20:42 83 97 08/18/21 20:41 96 H 94 08/18/21 20:37 89 96 08/18/21 20:32 91 H 97 08/18/21 20:30 84 18 124/71 08/18/21 20:27 97 H 97 08/18/21 20:22 83 99 08/18/21 20:17 84 98 08/18/21 20:12 97 H 99 08/18/21 20:11 83 116/63 08/18/21 20:07 82 98 08/18/21 20:06 86 116/73 08/18/21 20:02 72 100 08/18/21 20:00 80 18 122/61 08/18/21 19:57 77 100 08/18/21 19:56 67 117/66 08/18/21 19:52 89 100 08/18/21 19:50 86 119/69 08/18/21 19:47 85 96 08/18/21 19:45 36.9 C 20 08/18/21 19:44 72 117/62 08/18/21 19:42 73 122/68 98 08/18/21 19:40 75 117/68 08/18/21 19:38 85 114/62 08/18/21 19:37 93 H 99 08/18/21 19:36 84 115/62 08/18/21 19:34 86 116/63 08/18/21 19:32 80 114/65 98 08/18/21 19:30 93 H 117/65 08/18/21 19:28 86 111/63 08/18/21 19:27 94 H 99 08/18/21 19:26 73 113/63 08/18/21 19:23 75 118/65 08/18/21 19:22 103 H 99 08/18/21 19:17 101 H 98 08/18/21 19:12 79 98 08/18/21 19:07 79 98 08/18/21 19:01 36.9 C 20 08/18/21 18:04 85 125/70 Pain Intensity Right Hip: Pain Intensity: 0 Transfer of Care Handoff Completed per policy Notes Mental Status: alert / awake / arousable and participated in evaluation Patient Amnestic to Procedure: Yes Nausea / Vomiting: adequately controlled Pain: adequately controlled Airway Patency, RR, SpO2: stable & adequate BP & HR: stable & adequate Hydration State: stable & adequate Anesthetic Complications: no major complications apparent and Pt Satisfied with anesthetic care
[2021-08-19] MEDS: DOCUSATE SODIUM 100 MG CAP PO SCH (21:05)
[2021-08-19] MEDS: TAMSULOSIN HCL 0.4 MG CAP PO SCH (21:05)
[2021-08-20] MEDS: IBUPROFEN 600 MG TAB PO PRN ×3 (01:09→19:51)
[2021-08-20 07:52] LABS: Hematocrit (blood only) 24.6 % (37-47); Hemoglobin 8.2 g/dL (12.0-16.0); Mean Corpuscular Hemoglobin 32.3 pg (25-34); Mean Corpuscular Hgb Conc 33.3 g/dL (32-36); Mean Corpuscular Volume 96.9 fL (80-100); Mean Platelet Volume 10.4 fL (7.4-10.4); Platelet Count 193 K/uL (130-400); RDW Coefficient of Variation 14.1 % (11.5-14.5); RDW Standard Deviation 49.6 fL (36.4-46.3); Red Blood Count 2.54 M/uL (4.2-5.4); White Blood Count 15.87 K/uL (4.8-10.8)
[2021-08-20] MEDS: DOCUSATE SODIUM 100 MG CAP PO SCH ×2 (08:31→20:50)
[2021-08-20] MEDS: PRENATAL VITAMIN 1 TAB PO SCH (08:31)
[2021-08-20] MEDS: FERROUS SULFATE 325 MG TAB PO SCH (08:31)
[2021-08-20] MEDS: SERTRALINE HCL 50 MG TABLET PO SCH (09:00)
--- NOTE | 2021-08-20 09:27 | Obstetrical Progress Note ---
Date of Service August 20, 2021 Assessment & Plan (1) Anemia affecting in third trimester: (2) 40 weeks gestation of : CBC in AM Subjective Ambulation: ambulating normally Voiding: no voiding problems Passing Gas:: Yes Diet Tolerance:: regular diet Lochia:: Small Feeding Type:: breast feeding Current Pain Level(1-10): 0 doing well. some slight dizziness when getting OOB. Physical Exam Constitutional WD/WN, vitals as above abdomen soft and non-tender. fundus firm below U. no edema, neg Salome's Results & Data ([facility]) Vital Signs (Past 12 Hours) Vital Signs Temp Pulse Resp BP BP Pulse Ox 08/20/21 06:58 36.5 C 77 16 88/44 L 97 08/20/21 04:30 36.7 C 87 16 93/54 L 98 08/20/21 01:05 37.1 C 95 H 18 100/61 98 Laboratory Results 08/18/21 08/18/21 08/18/21 18:38 18:53 20:16 WBC 17.86 H RBC 3.52 L Hgb 11.5 L Hct 33.6 L MCV 95.5 MCH 32.7 MCHC 34.2 RDW Std Deviation 47.8 H RDW Coeff of Wilbert 13.8 Plt Count 250 MPV 10.4 POC Glucose 99 112 H 08/18/21 08/18/21 08/18/21 21:07 22:03 23:06 WBC RBC Hgb Hct MCV MCH MCHC RDW Std Deviation RDW Coeff of Wilbert Plt Count MPV POC Glucose 110 H 108 H 139 H 08/19/21 08/19/21 08/19/21 00:50 02:01 02:54 WBC RBC Hgb Hct MCV MCH MCHC RDW Std Deviation RDW Coeff of Wilbert Plt Count MPV POC Glucose 113 H 121 H 109 H 08/19/21 08/19/21 08/19/21 04:08 05:13 06:10 WBC RBC Hgb Hct MCV MCH MCHC RDW Std Deviation RDW Coeff of Wilbert Plt Count MPV POC Glucose 125 H 125 H 171 H 08/19/21 08/19/21 08/19/21 07:11 08:12 09:12 WBC RBC Hgb Hct MCV MCH MCHC RDW Std Deviation RDW Coeff of Wilbert Plt Count MPV POC Glucose 121 H 124 H 118 H 08/19/21 08/19/21 08/20/21 10:12 11:12 06:52 WBC 15.87 H RBC 2.54 L Hgb 8.2 L D Hct 24.6 L MCV 96.9 MCH 32.3 MCHC 33.3 RDW Std Deviation 49.6 H RDW Coeff of Wilbert 14.1 Plt Count 193 MPV 10.4 POC Glucose 118 H 113 H
[2021-08-20] MEDS ORDERED: bisacodyL 5 MG TABEC PO SCH (20:00)
[2021-08-20] MEDS: TAMSULOSIN HCL 0.4 MG CAP PO SCH (20:49)
--- NOTE | 2021-08-21 07:01 | Obstetrical Progress Note ---
Date of Service August 21, 2021 Assessment & Plan (1) Normal course: Continue routine PP course D/c home today. F/u in office 3 and 6 week PP Subjective Ambulation: ambulating normally Voiding: no voiding problems Passing Gas:: Yes Diet Tolerance:: regular diet Lochia:: Moderate Feeding Type:: breast feeding Current Pain Level(1-10): 3 Doing well with ibuprofen and Tylenol for pain relief. Wants to go home today. No BM yet Physical Exam Constitutional WD/WN, vitals as above Respiratory normal respiratory effort, lungs clear to auscultation Cardiovascular RRR, no murmur, no edema Gastrointestinal (Abdomen) normal bowel sounds, soft, nontender, no hepatosplenomegaly Results & Data ([facility]) Vital Signs (Past 12 Hours) Vital Signs Temp Pulse Resp BP BP Pulse Ox 08/21/21 04:00 36.7 C 86 18 88/44 L 100 08/20/21 20:00 36.6 C 96 H 18 97/58 L 100
[2021-08-21 07:07] LABS: Hematocrit (blood only) 22.2 % (37-47); Hemoglobin 7.5 g/dL (12.0-16.0)
[2021-08-21] MEDS: DOCUSATE SODIUM 100 MG CAP PO SCH (09:22)
[2021-08-21] MEDS: SERTRALINE HCL 50 MG TABLET PO SCH (09:23)
[2021-08-21] MEDS: FERROUS SULFATE 325 MG TAB PO SCH (09:23)
[2021-08-21] MEDS: PRENATAL VITAMIN 1 TAB PO SCH (09:23)
[2021-08-21] MEDS: IBUPROFEN 600 MG TAB PO PRN (11:31)
[2021-08-21] MEDS ORDERED: VARICELLA VIRUS VACCINE LIVE VIAL SQ ONE (12:00)
--- NOTE | 2021-08-25 07:19 | Coding Query ---
PATHOLOGY To promote full compliance with coding requirements relating to patient care, physician participation is requested in all cases of matchbook maker uncertainty. Please assist us with the question(s) below: Please review the Pathology report and please document any relevant diagnosis(es) below: Diagnosis(es): chorioamnionitis Thank you Tommie CORDOBA
== END 2021-08-21 12:30 | disposition home or self-care (01) | DRG 805 ==
LOC: OPB 17:48 → 4S1 17:50 → 4E1 08-19 16:42